=== PATIENT | male | born 1995 | race African-American/Black ===

== ENCOUNTER → 2024-06-22 | Outpatient (CLI) | payer OTHER ==
--- NOTE | 2024-06-22 10:36 | HMCIMG ---
US ABDOMINAL COMPLETE HISTORY: No additional history given. COMPARISON: None TECHNIQUE: Multiple transverse and longitudinal ultrasound images of the abdomen were obtained. FINDINGS: Abdominal aorta and inferior vena cava are unremarkable. The visualized portion of the pancreas is within normal limits. Liver measures 16.8 cm. No gallstone is seen. Common duct measures 3 mm. No evidence of gallbladder wall thickening is seen. Both kidneys are seen. Right kidney measures 9.5 x 4.2 x 5 cm. Left kidney measures 9.7 x 4.3 x 3.4 cm. No hydronephrosis is seen of the both kidneys. Spleen measures 11.7 cm. The spleen is grossly unremarkable. IMPRESSION: 1. No gallstone or ductal dilatation is seen. 2. No hydronephrosis is seen.
== END | disposition home or self-care (01) ==
LOC: EEVIPCON 08:59 → RAH 08:59
PROVIDERS: ATTEND Family Medicine
DX: R10.9 Unspecified abdominal pain (principal)
CPT/HCPCS: 76700